=== PATIENT | female | born 1935 | race Caucasian/White ===

== ENCOUNTER 2019-06-07 13:13 | Inpatient (IN) | payer OTHER, BC ==
[~2019-06-07] VITALS: Ht 157.5 cm; Wt 63.0 kg
[2019-06-07 13:14] VITALS: BP 138/60
[2019-06-07 13:52] LABS: ABSOLUTE NEUTROPHILS 2.7 thou/uL (1.4-8.2); BASOPHILS 0.5 % (0.0-2.0); EOSINOPHILS 1.4 % (0.0-3.0); HEMOGLOBIN 11.7 gm/dL (12.0-15.0); LYMPHOCYTES 25.1 % (24.0-44.0); MCH 28.8 pg (26.0-34.0); MCHC 32.5 g/dL (28.0-37.0); MCV 88.9 fL (80.0-100.0); MONOCYTES 3.9 % (1.0-8.0); PLATELET COUNT 255 thou/uL (150-400); POLYS 69.1 % (36.0-66.0); RBC 4.05 mil/uL (4.20-5.00); RDW 14.1 % (10.5-14.5); WBC 3.9 thou/uL (4.0-11.0)
[2019-06-07 14:05] LABS: ANION GAP 8 mmol/L (7-16); BUN 18 mg/dL (7-18); CALCIUM 9.9 mg/dL (8.5-10.1); CHLORIDE 102 mmol/L (98-107); CO2 29 mmol/L (21-32); GLUCOSE 130 mg/dL (74-106); POTASSIUM 4.6 mmol/L (3.5-5.1); SODIUM 139 mmol/L (136-145)
[2019-06-07 14:14] LABS: TROPONIN-I <0.06 ng/mL (<0.06)
[2019-06-07 15:29] LABS: URINE BILIRUBIN NEGATIVE (Negative); URINE BLOOD NEGATIVE (Negative); URINE CLARITY CLEAR; URINE COLOR YELLOW; URINE GLUCOSE-RANDOM* NEGATIVE (Negative); URINE KETONES NEGATIVE (Negative); URINE LEUKOCYTES-REFLEX NEGATIVE (Negative); URINE NITRITE-REFLEX NEGATIVE (Negative); URINE PROTEIN (DIPSTICK) NEGATIVE (Negative); URINE SPECIFIC GRAVITY 1.015 (1.005-1.035); URINE UROBILINOGEN 0.2 E.U./dl (0.2-1.0)
[2019-06-07] MEDS ORDERED: NAMENDA 10 MG T10 MG PO (17:54)
[2019-06-07] MEDS ORDERED: NAPROXEN250 MG PO (17:55)
[2019-06-07] MEDS ORDERED: REMERON15 MG PO (17:55)
[2019-06-07] MEDS ORDERED: OMEGA-3 FISH1200 MG PO (17:55)
[2019-06-07] MEDS ORDERED: OLANZAPINE ODT5 MG PO (17:55)
[2019-06-07] MEDS ORDERED: MIRALAX119 GM PO (17:56)
[2019-06-07] MEDS ORDERED: RESTORIL7.5 MG PO (17:57)
[2019-06-07 18:22] VITALS: BP 125/74
--- NOTE | 2019-06-07 18:23 | NUR ---
REPORT CALLED TO RN ON FLOOR. NO DISTRESS WHEN TRANSPORTED
[2019-06-07] MEDS ORDERED: LEVO-T50 MCG PO (18:33)
[2019-06-07] MEDS ORDERED: CELEXA 20 MG TA20 MG PO (18:35)
[2019-06-07 18:58] VITALS: BP 120/98
[2019-06-07 20:16] VITALS: BP 136/75
[2019-06-08] VITALS: BP 137/59
[2019-06-08 04:30] VITALS: BP 146/69
--- NOTE | 2019-06-08 06:19 | NUR ---
ASSESSMENT DOCUMENTED.PT BEEN RESTING IN NO ACUTE DISTRESS.ADMITTED WITH SYNCOPE.DENIES BEING DIZZINESS.ADMISSION ASSESSMENT DOCUMENTED.DAUGHTER PRESENT AT BEDSIDE.VSS.AMBULATES WITH STEADY GAIT TO BR.STAFF STANDBY WITH AMBULATION.RA W/O RESP DISTRESS.VSS.A/OX4 WITH FORGEFULNESS.NO CONCERNS VOICED.WILL CONT TO MONITOR PER POC.
[2019-06-08 08:13] VITALS: BP 164/69
--- NOTE | 2019-06-08 09:59 | 2DMMODE ---
[facility] [address] [place] [address] 2 D/M-MODE ECHOCARDIOGRAM Name: ELIZABETH PICKETT Room #: 208-P ADM IN M.R.#: [id number] Admission: 06/07/19 Attend Phys: Karri Justice Discharge: Date of : 37 Report #: [id number] THIS REPORT FOR: //name// APPROVED REPORT Study performed: 06/08/2019 09:27:25 EXAM: Comprehensive 2D, Doppler, and color-flow Echocardiogram Patient Location: Echo lab Room #: 208 Status: routine BSA: 1.64 HR: 62 bpm BP: 164/69 mmHg Rhythm: NSR Other Information Study Quality: Adequate Indications Syncope Hypertension/HDD 2D Dimensions RVDd: 29.35 mm IVSd: 11.30 (7-11mm) LVOT Diam: 21.03 (18-24mm) LVDd: 33.97 mm PWd: 12.81 (7-11mm) Ascending Ao: 28.44 (22-36mm) LVDs: 18.56 (25-40mm) Aortic Root: 25.53 mm IVC: 12.00 mm Volumes Left Atrial Volume (Systole) Single Plane 4CH: 29.20 mL Single Plane 2CH: 42.43 mL LA ESV Index: 24.00 mL/m2 Aortic Valve AoV Peak Ángel.: 1.49 m/s AO Peak Gr.: 8.85 mmHg LVOT Max P.47 mmHg LVOT Max V: 1.17 m/s LILIANA Vmax: 2.73 cm2 Mitral Valve E/A Ratio: 0.8 MV Decel. Time: 318.00 ms [facility] [address] [place] [address] 2 D/M-MODE ECHOCARDIOGRAM Name: ELIZABETH PICKETT Room #: 208-P [facility] IN [facility].#: [id number] Admission: 06/07/19 Attend Phys: Karri Alvarez Aug Discharge: Date of : 37 Report #: [id number] MV E Max Ángel.: 0.63 m/s MV A Ángel.: 0.75 m/s MV PHT: 92.22 ms IVRT: 133.79 ms Pulmonary Valve PV Peak Ángel.: 1.00 m/s PV Peak Gr.: 4.04 mmHg Pulmonary Vein P Vein S: 0.87 m/s P Vein A: 0.34 m/s P Vein D: 0.43 m/s P Vein A Dur.: 143.0 msec P Vein S/D Ratio: 2.02 Tricuspid Valve TR Peak Ángel.: 2.50 m/s RAP Estimate: 5.00 mmHg TR Peak Gr.: 25.04 mmHg PA Pressure: 30.00 mmHg Left Ventricle The left ventricle is normal size. Mild concentric left ventricular hypertrophy. The left ventricular systolic function is normal. The left ventricular ejection fraction is within the normal range. LVEF is 60-65%. Mild diastolic dysfunction is present (impaired relaxation pattern). Right Ventricle The right ventricle is normal size. The right ventricular systolic function is normal. Atria The left atrium size is normal. The right atrium size is normal. Aortic Valve Aortic valve leaflets are mildly thickened. No aortic regurgitation is present. There is no aortic valvular stenosis. Mitral Valve The mitral valve is normal in structure. There is no mitral valve regurgitation noted. No evidence of mitral valve stenosis. Tricuspid Valve The tricuspid valve is normal in structure. Trace to mild tricuspid regurgitation. PAP is estimated at 30 mmHg. Pulmonic Valve [facility] [address] [place] [address] 2 D/M-MODE ECHOCARDIOGRAM Name: ELIZABETH PICKETT Room #: 208-P [facility] IN M.R.#: [id number] Admission: 06/07/19 Attend Phys: Karri Justice Discharge: Date of : 37 Report #: [id number] The pulmonary valve is normal in structure. Mild pulmonic regurgitation. Great Vessels The aortic root is normal in size. IVC is normal in size and collapses >50% with inspiration. Pericardium There is no pericardial effusion. <Conclusion> The left ventricle is normal size. Mild concentric left ventricular hypertrophy. LVEF is 60-65%. Mild diastolic dysfunction is present (impaired relaxation pattern). The right ventricle is normal size. The left atrium size is normal. Aortic valve leaflets are mildly thickened. There is no aortic valvular stenosis. There is no mitral valve regurgitation noted. Trace to mild tricuspid regurgitation. PAP is estimated at 30 mmHg. The aortic root is normal in size. There is no pericardial effusion. <ELECTRONICALLY SIGNED> By: Oleg Lau MD, FACC 06/08/1958 8 8 Oleg Lau MD, FACC /INF
[2019-06-08 11:16] VITALS: BP 148/68
[2019-06-08 14:29] VITALS: BP 148/68
[2019-06-08 15:36] VITALS: BP 171/77
--- NOTE | 2019-06-08 17:23 | NUR ---
met with patient and family at bedside. patient resides at home with family. Tenative plan for dc today. Patient ambulates with no devices. Family reports she is at baseline and plans home at dc with no needs.
--- NOTE | 2019-06-08 17:24 | NUR ---
ASSUMED CARE 0700. ALERT X4 WITH FORGETFULNESS, RECENTLY LOSSED HER ON MONTH AGO AND NOW LIVING WITH SON. DENIES PAIN, SINUS MONSTER ON TELE. UP AB DIANE. NO ABMORMAL ON US OF CAROTIDS. DC HOME WITH SELF CARE
--- NOTE | 2019-06-11 12:46 | EKG ---
[address] [address] ELECTROCARDIOGRAM REPORT Name: ELIZABETH PICKETT Room #: 208-P [facility] IN M.R.#: [id number] Admission: 06/07/19 Attend Phys: Karri Morocho Discharge: 06/08/19 Date of : 37 Report #: [id number] THIS REPORT FOR: //name// [facility] ED Test Date: 2019-06-07 Test Time: 13:26:32 Pat Name: ELIZABETH PICKETT Department: Room: [facility] Gender: F Nursing Admin: david : [id number] Requested By: Dillon Leija Order Number: [id number] MD: Syed Delgado Measurements Intervals [place] Rate: 50 P: -31 MN: 217 QRS: -29 QRSD: 92 T: 16 QT: 467 QTc: 426 Interpretive Statements Sinus rhythm Borderline prolonged MN interval Borderline left axis deviation Low voltage, precordial leads RSR' in V1 or V2, right VCD or RVH No previous ECG available for comparison Electronically Signed On 06-11-2019 12:46:11 CIGAR [employer] HAND by Syed Delgado [email or web address] <ELECTRONICALLY SIGNED> By: Syed Delgado MD 06/11/19 1246 [id number] Syed Delgado MD /EPI
== END 2019-06-08 18:03 | disposition home or self-care (01) | DRG 74 ==
LOC: ER 13:13 → EROBS 17:12 → 2N 17:12
PROVIDERS: Emergency Medicine; ADMIT Hospitalist
DX: G90.8 Other disorders of autonomic nervous system (principal); F03.90 Unspecified dementia, unspecified severity, without behavioral disturbance, psychotic disturbance, mood disturbance, and anxiety; I10 Essential (primary) hypertension; E03.9 Hypothyroidism, unspecified; F32.9 Major depressive disorder, single episode, unspecified; Z79.899 Other long term (current) drug therapy
CPT/HCPCS: 10081